=== PATIENT | male | born 1940 | race Caucasian/White ===

== ENCOUNTER 2018-04-14 21:37 | Inpatient (IN) | payer OTHER ==
[2018-04-15 02:04] VITALS: BP 105/71
[2018-04-15] MEDS ORDERED: ARICEPT 5 MG TAB5 MG PO (02:51)
[2018-04-15] MEDS ORDERED: SEROQUEL 25 MG25 M1 PO (02:53)
[2018-04-15] MEDS ORDERED: DEPAKOTE ER250 MG PO (02:55)
[2018-04-15] MEDS ORDERED: BUSPIRONE HCL10 MG PO (02:57)
[2018-04-15] MEDS ORDERED: CENTRUM SILVER1 EAC2 PO (02:58)
[2018-04-15] MEDS ORDERED: LISINOPRIL10 MG PO (03:00)
[2018-04-15] MEDS ORDERED: LOVASTATIN 20 M20 MG PO (03:01)
[2018-04-15] MEDS ORDERED: TRAMADOL 50 MG50 MG PO (03:02)
[2018-04-15] MEDS ORDERED: ATIVAN0.5 MG PO (03:04)
[2018-04-15] MEDS ORDERED: LIPOFLAVONOID1 EACH PO (03:05)
--- NOTE | 2018-04-15 08:54 | EKG ---
[address] [address] ELECTROCARDIOGRAM REPORT Name: RANJITH LATIF Room #: 528A-A ADM IN M.R.#: [id number] Admission: 04/14/18 Attend Phys: Ilan Nowak DO Discharge: Date of : 42 Report #: [id number] THIS REPORT FOR: //name// [facility] Test Date: 2018-04-14 Test Time: 23:58:57 Pat Name: RANJITH LATIF Department: Room: 52 A Gender: M Director Of Estate: jsoe : 1940 Requested By: Ilan Nowak Order Number: [id number] MD: Imtiaz Mtz Measurements Intervals [place] Rate: 81 P: 62 IA: 147 QRS: 35 QRSD: 100 T: 48 QT: 362 QTc: 421 Interpretive Statements Sinus arrhythmia Ventricular premature complex Low voltage, extremity leads Baseline wander in lead(s) II,V1,V3 Compared to ECG 07/12/1993 06:36:00 Ventricular premature complex(es) now present Low QRS voltage now present Sinus bradycardia no longer present Myocardial infarct finding no longer present Electronically Signed On 04-15-2018 8:53:48 [employer] [employer] by Imtiaz Mtz [email or web address] <ELECTRONICALLY SIGNED> By: Imtiaz Mtz MD 04/15/18 0853 [id number] Imtiaz Mtz MD /EPI
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
--- NOTE | 2018-04-15 14:46 | NUR ---
ASSUMED PATIENT CARE AT 0700. RESIDENT IN BED, COVERED WITH SEVERAL BLANKETS R/T ISSUES WITH HEATING SYSTEM. CONTINUE TO MONITOR.
--- NOTE | 2018-04-15 15:59 | NUR ---
PATIENT HAS BEEN RESTLESS THROUGHOUT THE DAY. NON-COMBATIVE; CONTINUALLY GETTING UP AND DOWN OUT OF BED AND WALKING OUT OF ROOM. AT ONE POINT, WALKED INTO PATIENT'S ROOM IN 519 AND WAS RE-DIRECTED OUT WITHOUT DIFFICULTY. HAS BEEN AMBULATING WITH STAFF FOR THE PAST TEN MINUTES AROUND THE UNIT. HAS PREVIOUSLY BEEN AMBULATED WITH STAFF SEVERAL TIMES DURING THIS SHIFT.
[2018-04-15 17:00] VITALS: BP 114/70
--- NOTE | 2018-04-15 17:56 | NUR ---
AT ABOUT 1700, PATIENT HAS HAD CONFUSION R/T GOING INTO ANOTHER PATIENT'S ROOM. NURSE REDIRECTED TO TO SIT DOWN. PATIENT BEGAN TALKING ABOUT [facility]. NURSE QUESTIONED HIM TO WHERE HEIS RIGHT NOW. HE STATED THAT HE IS ON THE [facility]. REDIRECTED THAT IS IN [facility]. HE REPLIED THAT HE HAD NEVER BEEN IN A HOSPITAL.
[2018-04-15 21:02] VITALS: BP 105/58
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
[2018-04-16 06:06] LABS: HEMATOCRIT 38.3 % (42.0-52.0); HEMOGLOBIN 12.9 gm/dL (14.0-18.0); MCHC 33.5 g/dL (28.0-37.0); MCV 95.4 fL (80.0-100.0); PLATELET COUNT 165 thou/uL (150-400); RBC 4.02 mil/uL (4.50-6.00); RDW 15.1 % (10.5-14.5); WBC 7.1 thou/uL (4.0-11.0)
[2018-04-16 06:13] LABS: CALCIUM 8.9 mg/dL (8.5-10.1); CREATININE 0.7 mg/dL (0.7-1.3); POTASSIUM 4.3 mmol/L (3.5-5.1)
[2018-04-16 06:33] LABS: LARGE PLATELETS OCCASIONAL
[2018-04-16 09:26] VITALS: BP 102/51
--- NOTE | 2018-04-16 11:17 | NUR ---
KIMBERLY called in spoke with Chantelle the emergency medical services coordinator concerning pt health. Chantelle from [facility] stated that she will fax over the documentation that is required. KIMBERLY provided Chantelle with the faxed number and asked if it will be attention to the SW. KIMBERLY will follow-up with pt, family, medical team concerning appropriate hospice.
--- NOTE | 2018-04-16 15:31 | NUR ---
ASSUMED PT CARE AT 0700H. PT AT THE TIME WAS SLEEPING. PT STATES BACK LOWER PAIN. CONSULT WITH HEALTHCARE PROVIDER NEW ORDERS FOR TYLENOL GIVEN. PT MISSED BREAKFAST, BUT LATER ABLE TO AMBULATE TO DINING FOR LUNCH. PT ORIENTED TO SELF. PT CONTINUES TO BE MONITORED [id number] FOR SAFETY.
[2018-04-16 19:54] VITALS: BP 78/41
[2018-04-17 03:53] VITALS: BP 95/56
--- NOTE | 2018-04-17 04:06 | NUR ---
PATIENT UP AT DOOR AT CHANGE OF SHIFT. INTRODUCED SELF. APPEARS QUITE DEPRESSED. SPENT MUCH OF THE EVENING IN ROOM. UP TO BATHROOM WITH STAND BY ASSIST. TOOK HS MEDS WITHOUT COMMENT OR COMPLAINT. C/O PAIN IN HIP AREA AT AROUND 0200. TYLENOL 650 PO FOR PAIN WITH SATISFACTORY RESULTS. SLEPT THE REMAINDER OF NIGHT.
[2018-04-17 08:12] VITALS: BP 121/79
--- NOTE | 2018-04-17 09:00 | NUR ---
0900: PATIENT IN BED AT BEGINNING OF SHIFT AT 0700. AMBULATED TO DINING ROOM FOR BREAKFAST. ATE 100% OF BREAKFAST. VSS; 121/79, HR 64-R16. ASSESSMENT WNL. CONTINUE TO MONITOR.
--- NOTE | 2018-04-17 11:19 | NUR ---
NURSE CONTACTED SON-IN-LAW AT 11:20 (HIS NUMBER IS UNDER DAUGHTER'S NAME ON ADMIN. DATA.). REQUESTED THAT HE BRING IN CLOTHES FOR PATIENT, WHICH HE AGREED TO DO. WILL BRING CLOTHING WITH NO STRINGS OR ANYTHING UNSAFE.
--- NOTE | 2018-04-17 11:47 | NUR ---
PER DR. MYRICK'S DIRECTION TO CONTACT HOSPITALIST R/T PATIENT'S BLOOD PRESSURE MEDICATION. NURSE FIRST REVIEWED BP MEDS, WHICH IS ONLY LISINOPRIL. DIRECTIONS ON JUN--HOLD IF SYSTOLIC LESS THAN 130. NURSE INADVERTENTLY GAVE LISINIPROL FOR 0900 DOSE. WILL RE-TAKE BP AT THIS TIME.
--- NOTE | 2018-04-17 17:25 | NUR ---
PATIENT'S BP AT 1700: 137/73, HR 82. PATIENT WALKED FROM HIS ROOM TO DR TO EAT WITH NO PROBLEMS. CONTINUE TO MONITOR.
[2018-04-17 18:22] VITALS: BP 137/43
[2018-04-17 19:28] VITALS: BP 157/109; BP 85/50
--- NOTE | 2018-04-17 20:45 | NUR ---
ASSUMED CARE OF PATIENT AT APPROXIMATELY 1900 FROM VALORIE CHRISTINA. PT IN BED AT TIME OF SHIFT ARRIVAL. ROUNDS COMPLETED AND PATIENT ASSESSED. APPEARANCE IS FAIR, DRESSED IN OWN CLOTHES THAT PATIENTS FAMILY BROUGHT IN THIS EVENING. PATIENT IS ORIENTED TO SELF ONLY, REPORTS YEAR IS 1938 AND "AT THE SAME PLACE I WAS THEN" WHEN ASSESSED CURRENT ORIENTAITON OF PLACE. ATTEMPTED TO PROVIDE ORIENATION EDUCAITON INCLUDING ADMISSION TO [facility], STATING "I WAS AT [facility] ONCE FOR MY, POINTING TO BELLY)". LONG PAUSES BEFORE ANSWERS ANY QUESITONS AND APPEARS TO STRUGGLE WITH WORD RECALL AT TIMES, NEEDING LONG PAUSES AND REMINDERS AT TIME. FALL RISK EDUCATION PROVIDED WITH REINFORCEMENT NEEDED DUE TO DISORIENTATION, YELLOW SLIPPERS APPLIED, BED IN LOWERST POSITION, SIDE RAILS UP X 3 WITH RIGHT LOWER DOWN, AND ALARM ACTIVATED. PT IS COOPERATIVE WITH STAFF REQUESTS. NO REPORTS OR OBSERVATIONS OF AGGRESSION TO STAFF OR HARM TO SELF. UNABLE TO PROVIDE RESPONSES TO ASSESSMENT QUESTIONS OF CURRENT DEPRESSION AND ANXIETY FEELINGS. HOB RAISED UP TO BED CABILITIES AND MEDICAITON ADMINISTERE WHOLE WITH FREQUENT SIPS OF WATER. NO COUGHING AFTER MEDICATION ADMINISTRATION PER REPORT OR OBSERVED AFTER ADMINISTRATION. AFFECT IS FLAT. AVOIDS EYE CONTACT AT TIMES AND OTHER TIMES EYE CONTACT IS APPROPRIATE. SPEECH IS CLEAR, SOFT, AND DELAYED AT TIMES. HYPOTENSION THIS EVENING, VERBALLY DENIES ANY DIZZINESS WITH AMBULATION. ORTHOSTATIC BLOOD PRESSURE COMPLETED BY PRIOR SHIFT, SEE CHARTING, AND PATIENT BLOOD PRESSURE INCREASED SLIGHTLY WITH AMBULATION. VERBALLY DENIES ANY CURRENT UNMET NEEDS AT THIS TIME. WILL CONTINUE TO MONITOR FOR SAFETY AND OR UMNET NEEDS PER [facility] ORDERS.
--- NOTE | 2018-04-18 05:09 | NUR ---
PT HAD A GOOD NIGHT AND SLEPT WELL LAST HS. SLEPT APPROXIMATELY 8.5 HOURS WITH NO DIFFICULTY GETTING TO SLEEP AND STAYING ASLEEP.
--- NOTE | 2018-04-18 11:36 | NUR ---
KIMBERLY and Dr. Nowak attempted to reach the DPOA of pt on [phone]. Valeri was unable to be reached. KIMBERLY left a voicemail, and asked if she could return the phone call.
--- NOTE | 2018-04-18 11:37 | NUR ---
PATIENT HAS BEEN COMMUNICATING WELL THIS SHIFT. ALERT TO NAME ONLY. ABLE TO COMMUNICATE NEEDS, ANSWERS QUESTIONS APPROPRIATELY. TAKES HIS MEDICATIONS ORDERED. DAUGHTER AND SON-IN-LAW VISITED YESTERDAY EVENING. DAUGHTER EXPRESSED SATISFACTION WITH PATIENT'S PROGRESS. UP FOR MEALS. DID NOT WANT TO PARTICIPATE IN GROUP ACTIVITY THIS A.M. INSTEAD, RETURNED TO HIS ROOM "TO GET WARMED UP." PATIENT C/O BEING COLD, PREFERS TO LIE IN BED WITH MULTIPLE COVERS ON TO GET WARM. CONTINUE TO MONITOR.
--- NOTE | 2018-04-18 11:38 | NUR ---
KIMBERLY and Dr. Nowak spoke with Julia at [facility] concerning pt mental health status. Dr. Nowak explain that pt medication adjusted concerning his diagnosis of dementia. Yamileth stated that she would like to see the physcian progess notes. KIMBERLY obtained the fax number to send the progress notes to the facility. KIMBERLY stated the nurse will follow-up with the facility. The facility will take pt back, and he will be put on the memeory care unit. Dr. Nowak explained that pt is not appropriate for hospice at this time. KIMBERLY explained that the anticipated discharge date will be April 21, 2018.
[2018-04-18 12:29] LABS: ALBUMIN 3.1 g/dL (3.4-5.0); CALCIUM 9.2 mg/dL (8.5-10.1); CREATININE 0.8 mg/dL (0.7-1.3); PHOSPHORUS 3.4 mg/dL (2.5-4.9); POTASSIUM 4.7 mmol/L (3.5-5.1)
--- NOTE | 2018-04-18 17:18 | NUR ---
PATIENT DRANK ABOUT 250 ML OF THE MAGNISIUM CITRATE FOR CONSTIPATION WITH DINNER. MONITOR FOR RESULTS AND REPORT TO DR. MYRICK.
[2018-04-18 21:38] VITALS: BP 121/72
--- NOTE | 2018-04-19 04:11 | NUR ---
PATIENT RESTLESS EARLY IN SHIFT. PACING THE HALLS AND UP AND DOWN IN HIS ROOM. RESULTS OF LAXATIVE OK. SMALL BROWN WELL FORMED STOOL ABOUT 2230. FINALLY SETTLED AND SLEPT UNTIL 0400. UP TO BATHROOM, THEN BACK TO BED. REMAINS DELUSIONAL BUT REDIRECTABLE AND COOPERATIVE.
[2018-04-19 08:19] VITALS: BP 94/44
--- NOTE | 2018-04-19 10:05 | NUR ---
KIMBERLY called Pt's daughter Valeri Arora (who is also Pt's DPOA) [phone]. KIMBERLY was able to speak with Ms. Arora concerning Pt's pending diacharge back to [facility]. She was informed Pt would be discharged Saturday04/21/18. Ms. Arora did not express any concerns and did not have any further questions.
--- NOTE | 2018-04-19 15:54 | NUR ---
SW met with PT to discuss pending discharge Saturday04/21/2018. Pt stated he wa okay with going back to the detention. Pt felt that he had not seen the nurse or doctor enough today and dis not remeber eating breakfast. Pt was not oriented to time during this session. Pt did not have any complaints or concerns for the SW and wished to go back to sleep once we were done.
--- NOTE | 2018-04-20 03:40 | NUR ---
PATIENT RESTLESS AND CONFUSED EARLY IN SHIFT. OUT OF BED TO BATHROOM SEVERAL TIMES. HAD A COUPLE OF SNACKS. EVENTUALLY SLEPT QUITE WELL.
--- NOTE | 2018-04-20 12:22 | NUR ---
PATIENT WITH FLAT AFFECT, ANXIOUS MOOD, WANDERS AT TIMES. STAFF FURNISHES WARM BLANKET TO PATIENT WHEN HE IS UP R/T C/O COLDNES WHEN OUT OF BED. ATE 100% OF BREAKFAST AND LUNCH. PACING ON THE UNIT WITH STAND-BY ASSIST WITH SW. TOOK ALL OF AM MEDICATIONS WITHOUT DIFFICULTY. CONTINUE TO MONITOR.
[2018-04-20 18:25] VITALS: BP 103/68
[2018-04-20 22:29] VITALS: BP 121/77
--- NOTE | 2018-04-21 08:14 | NUR ---
Date of Admission: 04/14/18 Date of Activity Therapy Assessment: 04/17/18 Activity Goal: Increase reality orientation, Increase leisure awareness Initial Goal: 1 Individual activity/day Weekly progress towards goal: Achieving current goals Group participation level: Moderate Behaviors observed: Pt observed wandering halls frequently when he is not sleeping. Pt shows frustration from confusion as to where he is. Plan: No change towards goal
--- NOTE | 2018-04-21 08:50 | NUR ---
BEING DISCHARGED BACK TO [facility] AT 1030. SOMNOLENT THIS A.M. FREQUENT CHECKS; WILL CONTINUE TO MONITOR.
[2018-04-21] MEDS ORDERED: DEPAKOTE500 MG PO (09:14)
[2018-04-21] MEDS ORDERED: ACETAMINOPHEN325 M1 PO (09:14)
[2018-04-21] MEDS ORDERED: COLACE 100 MG100 MG PO (09:14)
[2018-04-21] MEDS ORDERED: MIRALAX17 GM PO (09:14)
[2018-04-21] MEDS ORDERED: TRAZODONE HCL50 MG PO (09:14)
[2018-04-21] MEDS ORDERED: PEPCID20 MG PO (09:14)
[2018-04-21] MEDS ORDERED: DEPAKOTE125 MG PO (09:14)
--- NOTE | 2018-04-21 09:35 | NUR ---
Patient Name: RANJITH LATIF Admission Date: 04/14/18 DISCHARGE PLAN: Pt will be discharge [facility] Care Assessment: Pt was assessed and re-evaluated on his medication. Pt demenetia has cause his behavior and disturbance. Pt medication was adjusted. Pt has communicated with staff, and he participated in group. SW was able to complete pt psychosocial assesment with the assistance of his DPOA. Level II Assessment: Dementia and Behavior Disturbance Transportation: Pt was transported by [facility] Special Instructions/Notes: SW explained that pt need to be on a memeory care unit where he can receieve the appropriate observation of his care. Pt is unable to take care of himself due to his cognitive disorder. DISCHARGE TO FACILITY: [facility] Facility: Address: [address] [place] [address] Contact Name: Rosalina PCP: CASSANDRA Psychiatrist: Dr. Nowak
--- NOTE | 2018-04-21 14:58 | HC ---
[facility] [place] [address] CONSULTATION Name: RANJITH LATIF Room #: 528B-B [facility] IN M.R.#: [id number] Admission: 04/14/18 Attend Phys: Ilan Nowak DO Discharge: 04/21/18 Date of : 42 Report #: [id number] THIS REPORT FOR: //name// CC: Ilan Nowak [facility] physician/PCP ENDOCRINE CONSULTATION LOCATION: Room 528. SUBJECTIVE: A 77-year-old white male admitted for dementia and aggressive behavior. The patient is unable to give much useful history, but states no problems with any clinical signs or symptoms of adrenal insufficiency, in particular no problems with appetite or weight gain. Since admission, the patient has had 2 serum cortisols drawn, one was at apparently 12:00 noon with the result of 17.3, another was at 5:00 p.m. with results of 10.4. This was apparently after one dose of Cortrosyn was administered, but it was administered at 11:00 a.m., which would have had no effect on the 5:00 value, therefore the 5:00 value would have been considered a normal afternoon cortisol draw. The afternoon cortisol draw would therefore be in the normal to high normal range and the prior value would have been a totally normal cortisol, which would indicate no evidence of adrenal insufficiency given that it was endogenously at 17.3 at noon. Otherwise, the patient has no clinical signs or symptoms to suggest adrenal insufficiency. OBJECTIVE: LABORATORY DATA: As above. Serum lytes are within normal limits. PHYSICAL EXAMINATION: Well-nourished, well-developed 77-year-old white male in no acute distress. Heart rate is variable from 56-71. He is afebrile. Blood pressure is variable going as high as 121/72. The remainder of the exam shows no clinical evidence of adrenal insufficiency. The patient is minimally alert. He is able to answer to his name, but is otherwise confused and can offer limited historical information. ASSESSMENT: Multiple psychosocial diagnoses such as dementia; however, there is no clinical evidence to suggest adrenal insufficiency. This is confirmed by a totally normal random noon cortisol and also a high normal afternoon cortisol that was drawn too many hours after administration of Cortrosyn to have been affected by that injection. Therefore, it must be considered a simple random afternoon cortisol level for which it is totally within normal limits. PLAN: 1. There is no suggestion of adrenal insufficiency or evidence to pursue this diagnosis any further. 2. I will monitor the patient as needed; however, it appears unlikely that further endocrine intervention is indicated. [address] [address] CONSULTATION Name: RANJITH LATIF Room #: 528B-B [facility] IN M.R.#: [id number] Admission: 04/14/18 Attend Phys: Ilan Nowak DO Discharge: 04/21/18 Date of : 42 Report #: [id number] Thank you very much for this consultation. I will continue to follow the patient with you for any endocrine evaluation that needs to be initiated. <ELECTRONICALLY SIGNED> By: Levi Andrew MD 04/21/18 1458 [id number] Levi Andrew MD /nt
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
== END 2018-04-21 11:40 | DRG 885 ==
LOC: SBH 21:37
PROVIDERS: Hospitalist; Nurse Practitioner; ADMIT Psychiatry & Neurology Psychiatry
DX: F23 Brief psychotic disorder (principal); F02.81 Dementia in other diseases classified elsewhere, unspecified severity, with behavioral disturbance; E87.0 Hyperosmolality and hypernatremia; G30.9 Alzheimer's disease, unspecified; Z66 Do not resuscitate; I25.10 Atherosclerotic heart disease of native coronary artery without angina pectoris; I10 Essential (primary) hypertension; I95.9 Hypotension, unspecified; E78.5 Hyperlipidemia, unspecified; Z79.899 Other long term (current) drug therapy; Z87.891 Personal history of nicotine dependence; Z88.1 Allergy status to other antibiotic agents; Z88.5 Allergy status to narcotic agent; I25.2 Old myocardial infarction; Z82.49 Family history of ischemic heart disease and other diseases of the circulatory system
CPT/HCPCS: 10880